=== PATIENT | female | born 1995 | race Caucasian/White ===

== ENCOUNTER 2021-10-25 05:47 | Inpatient (IN) | payer OTHER ==
[~2021-10-25] VITALS: Ht 165.1 cm; Wt 93.9 kg
[2021-10-25 07:04] LABS: HEMOGLOBIN 8.9 gm/dl (12.3-15.3); RED BLOOD COUNT 3.68 M/UL (4.00-5.10); WHITE BLOOD COUNT 14.8 K/UL (4.5-11.0)
[2021-10-25] MEDS ORDERED: FEROSUL325 MG PO ×2 (11:18→12:31)
[2021-10-25] MEDS ORDERED: SUBUTEX 8 MG TAB8 MG GT (11:19)
[2021-10-25] MEDS ORDERED: DOCUSATE SODIU250 MG PO (12:31)
[2021-10-25] MEDS ORDERED: IBUPROFEN600 MG PO (12:31)
[2021-10-25] MEDS ORDERED: HYDROCODONE-AC1 EACH PO (12:31)
[2021-10-26 07:14] LABS: HEMOGLOBIN 8.1 gm/dl (12.3-15.3)
[2021-10-28 06:46] LABS: HEMOGLOBIN 8.3 gm/dl (12.3-15.3); RED BLOOD COUNT 3.57 M/UL (4.00-5.10)
[2021-10-28] MEDS ORDERED: TYLOPHEN500 MG PO (10:30)
== END 2021-10-28 10:06 | disposition home or self-care (01) | DRG 788 ==
LOC: OB 05:47
PROVIDERS: Obstetrics & Gynecology; ADMIT Obstetrics & Gynecology
PROC: 10D00Z1 Extraction of Products of Conception, Low, Open Approach (ICD-10-PCS; 2021-10-25)
PROC: 3E02340 Introduction of Influenza Vaccine into Muscle, Percutaneous Approach (ICD-10-PCS; 2021-10-25)
PROC: 3E0234Z Introduction of Serum, Toxoid and Vaccine into Muscle, Percutaneous Approach (ICD-10-PCS; principal; 2021-10-25 11:25)
DX: O34.211 Maternal care for low transverse scar from previous cesarean delivery (principal); O99.344 Other mental disorders complicating childbirth; O99.334 Smoking (tobacco) complicating childbirth; Z20.822 Contact with and (suspected) exposure to COVID-19; F17.200 Nicotine dependence, unspecified, uncomplicated; O99.02 Anemia complicating childbirth; D50.9 Iron deficiency anemia, unspecified; F43.10 Post-traumatic stress disorder, unspecified; O99.284 Endocrine, nutritional and metabolic diseases complicating childbirth; E07.9 Disorder of thyroid, unspecified; Z3A.39 39 weeks gestation of pregnancy; Z37.0 Single live birth; Z23 Encounter for immunization
CPT/HCPCS: 36415; 80307; 81001; 85014; 85018; 85025; 90686; 90715; C9113; G0008; J0690; J1885; J2274; J2370; J2405; J2550; J2590; J2765; J3010; J7120; U0002

== ENCOUNTER 2021-10-31 08:13 | Emergency (ER) | payer OTHER ==
[~2021-10-31 08:13] MED LIST: DOCUSATE SODIU250 MG PO; FEROSUL325 MG PO; HYDROCODONE-AC1 EACH PO; IBUPROFEN600 MG PO; SUBUTEX 8 MG TAB8 MG GT; TYLOPHEN500 MG PO
[2021-10-31 09:59] LABS: HEMOGLOBIN 8.2 gm/dl (12.3-15.3); RED BLOOD COUNT 3.4 M/UL (4.00-5.10)
[2021-10-31 10:23] LABS: WHITE BLOOD COUNT 11.3 K/UL (4.5-11.0)
[2021-10-31 10:26] LABS: BUN/CREATININE RATIO 24 (0-10)
== END 2021-10-31 11:57 | disposition home or self-care (01) ==
LOC: ER1 08:13
PROVIDERS: Student in an Organized Health Care Education/Training Program
DX: O90.81 Anemia of the puerperium (principal); Z20.822 Contact with and (suspected) exposure to COVID-19; F17.210 Nicotine dependence, cigarettes, uncomplicated
CPT/HCPCS: 71045; 80048; 81001; 85025; 99283; U0002